=== PATIENT | male | born 1950 | race Caucasian/White ===

== ENCOUNTER 2024-04-15 09:12 | Outpatient (CLI) | payer MEDICARE, OTHER ==
[2024-04-15] MEDS ORDERED: Iopamidol 370 76% 100 ML VIAL ONE (12:08)
== END 2024-04-15 09:13 | disposition home or self-care (01) ==
LOC: BICCT 09:12
PROVIDERS: ATTEND Urology
DX: C61 Malignant neoplasm of prostate (principal); N20.0 Calculus of kidney; R39.15 Urgency of urination; N28.1 Cyst of kidney, acquired; J98.11 Atelectasis; Z90.79 Acquired absence of other genital organ(s); Z92.3 Personal history of irradiation
CPT/HCPCS: 74178; Q9967

== ENCOUNTER 2024-05-27 10:30 | Outpatient (CLI) | payer MEDICARE, OTHER | END 2024-05-27 10:31 | disposition home or self-care (01) | LOC: BICMRI 10:30 | PROVIDERS: ATTEND Family Medicine | DX: M47.26 Other spondylosis with radiculopathy, lumbar region (principal); M47.817 Spondylosis without myelopathy or radiculopathy, lumbosacral region; M48.061 Spinal stenosis, lumbar region without neurogenic claudication; M48.07 Spinal stenosis, lumbosacral region | CPT/HCPCS: 72148 ==

== ENCOUNTER 2024-07-29 11:00 | Outpatient (CLI) | payer MEDICARE, OTHER | END 2024-07-29 11:01 | disposition home or self-care (01) | LOC: PET 11:00 | PROVIDERS: ATTEND Urology | DX: C61 Malignant neoplasm of prostate (principal) | CPT/HCPCS: 78815; A9552; A9595 ==

== ENCOUNTER 2025-08-04 10:12 | Outpatient (CLI) | payer MEDICARE, OTHER | END 2025-08-04 10:13 | disposition home or self-care (01) | LOC: BICRAD 10:12 | PROVIDERS: ATTEND Family Medicine | DX: R07.81 Pleurodynia (principal) ==

== ENCOUNTER 2025-10-04 07:30 | Outpatient (CLI) | payer MEDICARE, OTHER | END 2025-10-04 07:31 | disposition home or self-care (01) | LOC: MRI 07:30 | PROVIDERS: ATTEND Physician Assistant Medical | DX: K52.9 Noninfective gastroenteritis and colitis, unspecified (principal); K21.9 Gastro-esophageal reflux disease without esophagitis; R11.2 Nausea with vomiting, unspecified; K59.00 Constipation, unspecified | CPT/HCPCS: 36415; 74183; 82565 ==